=== PATIENT | male | born 1945 ===

== ENCOUNTER 2024-09-09 21:03 | Emergency (ER) | payer MEDICARE ==
[~2024-09-09] VITALS: Ht 167.6 cm; Wt 83.9 kg
[2024-09-09] MEDS ORDERED: ZYRTEC10 M2 PO (22:28)
== END 2024-09-09 22:36 | disposition home or self-care (01) ==
LOC: ER 21:03
DX: J02.9 Acute pharyngitis, unspecified (principal); I10 Essential (primary) hypertension; Z88.5 Allergy status to narcotic agent; E78.5 Hyperlipidemia, unspecified
CPT/HCPCS: 99283

== ENCOUNTER 2024-10-21 11:33 | Emergency (ER) | payer MEDICARE ==
[~2024-10-21] VITALS: Ht 167.6 cm; Wt 74.8 kg
[~2024-10-21 11:33] MED LIST: ZYRTEC10 M2 PO
[2024-10-21] MEDS ORDERED: NS 1,000 ML IV SCH (12:05)
[2024-10-21] MEDS ORDERED: TAMSULOSIN HCL0.4 M1 PO (12:27)
[2024-10-21] MEDS ORDERED: FINA5 PO (12:27)
[2024-10-21] MEDS ORDERED: ROSUVASTATIN CA20 MG PO (12:27)
[2024-10-21] MEDS ORDERED: CARVEDILOL6.25 MG PO (12:27)
[2024-10-21] MEDS ORDERED: VENL25 PO (12:28)
[2024-10-21] MEDS ORDERED: MEMA10 PO (12:28)
[2024-10-21] MEDS ORDERED: HYDHCL25 (12:28)
[2024-10-21 12:31] LABS: BASOPHILS ABSOLUTE AUTO 0.08 K/mm3 (0.00-0.23); BASOPHILS PERCENT AUTO 1 % (0-2); EOSINOPHILS ABSOLUTE AUTO 0.43 K/mm3 (0.00-0.68); EOSINOPHILS PERCENT AUTO 5 % (0-6); Hematocrit 40.7 % (37.0-53.0); Hemoglobin 13.0 g/dL (13.5-17.5); IMMATURE GRAN ABSOLUTE AUTO 0.02 K/mm3 (0.00-0.10); IMMATURE GRAN PERCENT AUTO 0 % (0-1); LYMPHOCYTES ABSOLUTE AUTO 2.02 K/mm3 (0.84-5.20); LYMPHOCYTES PERCENT AUTO 23 % (21-46); MONOCYTES ABSOLUTE AUTO 0.58 K/mm3 (0.16-1.47); MONOCYTES PERCENT AUTO 7 % (4-13); Mean Corpuscular HGB Conc 31.9 g/dL (31.5-36.5); Mean Corpuscular Volume 93 fL (80-100); NEUTROPHILS ABSOLUTE AUTO 5.67 K/mm3 (1.96-9.15); NEUTROPHILS PERCENT AUTO 64 % (41-73); NRBC ABSOLUTE 0.00 K/mm3 (0.00-0.02); NRBC Auto 0.0 /100 WBC (0.0-0.2); Platelet Count 301 K/mm3 (150-400); RDW Coefficient Variation 14.3 % (11.7-14.2); RDW Standard Deviation 48.4 fL (35.1-46.3)
[2024-10-21 13:31] LABS: Alanine Aminotransfer (ALT/SGP 15.0 U/L (12-78); Albumin, Blood 3.1 g/dL (3.4-5.0); Albumin/Globulin Ratio 0.7 (0.8-1.8); Anion Gap 2.0 mmol/L (3-11); Aspartate Aminotrans (AST/SGOT 18.0 U/L (12-37); Bilirubin, Total 0.5 mg/dL (0.1-1.0); Blood Urea Nitrogen 24.0 mg/dL (8-24); CO2, Blood 30.0 mmol/L (21-32); Calcium, Blood 9.3 mg/dL (8.5-10.1); Chloride, Blood 106.0 mmol/L (98-108); Creatinine, Blood 1.49 mg/dL (0.60-1.20); Globulin, Blood 4.5 g/dL (2.2-4.0); Glucose, Blood 101.0 mg/dL (70-99); Potassium, Blood 4.0 mmol/L (3.5-5.5); Sodium, Blood 134.0 mmol/L (136-145); Total Protein, Blood 7.6 g/dL (6.4-8.2)
[2024-10-21] MEDS ORDERED: CARV3.125 PO (16:50)
== END 2024-10-21 17:29 | disposition home or self-care (01) ==
LOC: ER 11:33
PROVIDERS: Emergency Medicine; Physician Assistant
DX: I49.3 Ventricular premature depolarization (principal); I11.0 Hypertensive heart disease with heart failure; I50.9 Heart failure, unspecified; E78.5 Hyperlipidemia, unspecified; Z88.5 Allergy status to narcotic agent; Z79.899 Other long term (current) drug therapy
CPT/HCPCS: 71045; 80053; 82947; 83880; 84439; 84443; 84481; 84484; 85025; 93005; 93010; 99284-25

== ENCOUNTER 2024-11-26 13:18 | Inpatient (IN) | payer MEDICARE ==
[~2024-11-26] VITALS: Ht 165.1 cm; Wt 59.9 kg
[~2024-11-26 13:18] MED LIST changes: +CARV3.125 PO; +CARVEDILOL6.25 MG PO; +FINA5 PO; +HYDHCL25; +MEMA10 PO; +ROSUVASTATIN CA20 MG PO; +TAMSULOSIN HCL0.4 M1 PO; +VENL25 PO
[2024-11-26 13:48] LABS: BASOPHILS ABSOLUTE AUTO 0.06 K/mm3 (0.00-0.23); BASOPHILS PERCENT AUTO 1 % (0-2); EOSINOPHILS ABSOLUTE AUTO 0.31 K/mm3 (0.00-0.68); EOSINOPHILS PERCENT AUTO 5 % (0-6); Hematocrit 37.6 % (37.0-53.0); Hemoglobin 11.9 g/dL (13.5-17.5); IMMATURE GRAN ABSOLUTE AUTO 0.01 K/mm3 (0.00-0.10); IMMATURE GRAN PERCENT AUTO 0 % (0-1); LYMPHOCYTES ABSOLUTE AUTO 1.22 K/mm3 (0.84-5.20); LYMPHOCYTES PERCENT AUTO 18 % (21-46); MONOCYTES ABSOLUTE AUTO 0.47 K/mm3 (0.16-1.47); MONOCYTES PERCENT AUTO 7 % (4-13); Mean Corpuscular HGB Conc 31.6 g/dL (31.5-36.5); Mean Corpuscular Volume 93 fL (80-100); NEUTROPHILS ABSOLUTE AUTO 4.83 K/mm3 (1.96-9.15); NEUTROPHILS PERCENT AUTO 70 % (41-73); NRBC ABSOLUTE 0.00 K/mm3 (0.00-0.02); NRBC Auto 0.0 /100 WBC (0.0-0.2); Platelet Count 240 K/mm3 (150-400); RDW Coefficient Variation 13.3 % (11.7-14.2); RDW Standard Deviation 45.9 fL (35.1-46.3)
[2024-11-26 14:32] LABS: Alanine Aminotransfer (ALT/SGP 21.0 U/L (12-78); Albumin, Blood 3.3 g/dL (3.4-5.0); Albumin/Globulin Ratio 0.9 (0.8-1.8); Anion Gap 5.0 mmol/L (3-11); Aspartate Aminotrans (AST/SGOT 28.0 U/L (12-37); Bilirubin, Total 0.5 mg/dL (0.1-1.0); Blood Urea Nitrogen 21.0 mg/dL (8-24); CO2, Blood 32.0 mmol/L (21-32); Calcium, Blood 8.8 mg/dL (8.5-10.1); Chloride, Blood 107.0 mmol/L (98-108); Creatinine, Blood 1.31 mg/dL (0.60-1.20); Globulin, Blood 3.8 g/dL (2.2-4.0); Glucose, Blood 92.0 mg/dL (70-99); Potassium, Blood 4.4 mmol/L (3.5-5.5); Sodium, Blood 140.0 mmol/L (136-145); Total Protein, Blood 7.1 g/dL (6.4-8.2)
--- NOTE | 2024-11-26 17:55 | NUR ---
REPORT RECIEVED FROM ER NURSE AT 0306.
[2024-11-26 18:23] VITALS: BP 147/72
[2024-11-26] MEDS ORDERED: CARV3.125 PO (18:34)
[2024-11-26 18:44] LABS: Thyroid Stimulating Hormone 2.45 uIU/mL (0.360-4.800)
--- NOTE | 2024-11-26 19:16 | NUR ---
ARRIVAL TO PCU PT ARRIVED FROM ER AT 181 VIA GURNEY AND ON RA. PT SLID TO PCU BED VIA SLIDE AND BY 4 STAFF MEMBERS. PT ON RA AT TIME OF ARRIVAL. PT NEEDED ASSISTATNCE TO ROLL WHEN CHANGING INTO GOWN. LACERATION ON RIGHT SIDE OF HEAD AND ABRASION OF RIGHT KNEE NOTED, BOTH FROM FALL AT HOME PER GRANDDAUGHTER. PT A/OX3, ABLE TO ANSWER SOME HISTORY QUESTIONS, GRANDDAUGHTER FILLED IN. PT ORIENTED TO ROOM AND CALL LIGHT.
[2024-11-26 19:47] VITALS: BP 146/66
[2024-11-27 00:05] VITALS: BP 119/62
[2024-11-27 04:18] VITALS: BP 130/63
[2024-11-27 05:00] LABS: BASOPHILS ABSOLUTE AUTO 0.05 K/mm3 (0.00-0.23); BASOPHILS PERCENT AUTO 1 % (0-2); EOSINOPHILS ABSOLUTE AUTO 0.38 K/mm3 (0.00-0.68); EOSINOPHILS PERCENT AUTO 6 % (0-6); Hematocrit 35.6 % (37.0-53.0); Hemoglobin 11.5 g/dL (13.5-17.5); IMMATURE GRAN ABSOLUTE AUTO 0.01 K/mm3 (0.00-0.10); IMMATURE GRAN PERCENT AUTO 0 % (0-1); LYMPHOCYTES ABSOLUTE AUTO 1.80 K/mm3 (0.84-5.20); LYMPHOCYTES PERCENT AUTO 27 % (21-46); MONOCYTES ABSOLUTE AUTO 0.50 K/mm3 (0.16-1.47); MONOCYTES PERCENT AUTO 8 % (4-13); Mean Corpuscular HGB Conc 32.3 g/dL (31.5-36.5); Mean Corpuscular Volume 91 fL (80-100); NEUTROPHILS ABSOLUTE AUTO 3.82 K/mm3 (1.96-9.15); NEUTROPHILS PERCENT AUTO 58 % (41-73); NRBC ABSOLUTE 0.00 K/mm3 (0.00-0.02); NRBC Auto 0.0 /100 WBC (0.0-0.2); Platelet Count 217 K/mm3 (150-400); RDW Coefficient Variation 13.3 % (11.7-14.2); RDW Standard Deviation 44.5 fL (35.1-46.3)
[2024-11-27 05:27] LABS: Alanine Aminotransfer (ALT/SGP 19.0 U/L (12-78); Albumin, Blood 3.0 g/dL (3.4-5.0); Albumin/Globulin Ratio 0.9 (0.8-1.8); Anion Gap 6.0 mmol/L (3-11); Aspartate Aminotrans (AST/SGOT 32.0 U/L (12-37); Bilirubin, Total 0.5 mg/dL (0.1-1.0); Blood Urea Nitrogen 20.0 mg/dL (8-24); CO2, Blood 28.0 mmol/L (21-32); Calcium, Blood 8.4 mg/dL (8.5-10.1); Chloride, Blood 109.0 mmol/L (98-108); Creatinine, Blood 1.11 mg/dL (0.60-1.20); Globulin, Blood 3.4 g/dL (2.2-4.0); Glucose, Blood 77.0 mg/dL (70-99); Magnesium, Blood 2.2 mg/dL (1.6-2.4); Potassium, Blood 4.0 mmol/L (3.5-5.5); Sodium, Blood 139.0 mmol/L (136-145); Total Protein, Blood 6.4 g/dL (6.4-8.2)
--- NOTE | 2024-11-27 05:52 | NUR ---
SHIFT SUMMARY - PT A/OX2 TO SELF AND DAUGHTER, UNAWARE OF LOCATION OR SITUATION. 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 PT ENDORSES HEADACHE FROM RECENT GLF. OBEYS COMMANDS AND COOPERATES WITH CARE. ON CONTINUOUS CARDIAC TELEMETRY, IN A SINUS RHYTHM WITH HR IN 60'S THROUGH MOST OF THE NIGHT. LIVESTOCK COMMISSION AGENT NOTIFIED THIS RN OF ST ELEVATION, EKG IN CHART SHOWS LEFT BBB. PT DENIES ANY CHEST PAIN/PRESSURE. ON RA, SATS ABOVE 93%. LUNG SOUNDS ARE CLEAR, BREATHING IS SHALLOW AND UNLABORED. PT PULLED OUT HIS IV EARLY THIS AM. ANOTHER PLACED BY STUDENT NURSE IN RFA. NO ACUTE EVENTS THIS SHIFT. ECHO AND ST TO FOLLOW TODAY. SEE PREVIOUS NOTE FOR FURTHER ASSESSMENT.
[2024-11-27 08:04] VITALS: BP 135/69
--- NOTE | 2024-11-27 08:16 | NUR ---
CALL TO MD TO NOTIFY OF PROLONGED QTC .51. CARDIOLOGY ALREADY CONSULTED. NO NEW ORDERS AT THIS TIME.
[2024-11-27] MEDS ORDERED: FLU VACC TS2025-26(6MOS UP)/PF 45 MCG/0.5 ML SYRINGE IM SCH (09:00)
[2024-11-27] MEDS ORDERED: Enoxaparin 40 MG/0.4 ML SYR SC SCH (09:00)
[2024-11-27 11:14] VITALS: BP 167/96
[2024-11-27 15:47] VITALS: BP 142/86
[2024-11-27 15:53] LABS: Source, Urine Clean Catch
[2024-11-27 16:08] LABS: Bilirubin, Urine Neg (Neg); Glucose Qualitative, Urine Neg (Neg); Ketones, Urine Neg (Neg); Leukocyte Esterase, Urine 3+ (Neg); Protein, Urine 2+ (Neg); Specific Gravity, Urine 1.020 (1.003-1.022); Urobilinogen, Urine NORM (Normal)
[2024-11-27 16:14] LABS: Color, Urine Yellow (P-Yellow)
[2024-11-27 16:18] LABS: White Blood Cells, Urine TNTC /hpf (0-5)
--- NOTE | 2024-11-27 18:26 | NUR ---
SHIFT SUMMARY PT A&O X 2, ORIENTED TO SELF AND FAMILY, SOMETIMES ORIENTED TO PLACE. SR 60-70s WITH RUNS OF BIGEM AND SVT. SBP 130-140s AND STABLE. ALL OTHER VSS STABLE. URINE IS CLOUDY, CULTURE RESULTS PENDING. PT HAS NOT HAD A BM THIS SHIFT BUT IS STILL PASSING GAS. PT REQUIRES ASSIST WITH MEALS, TOLERATING WELL, NO COUGHING NOTED. PT IS ABLE TO PROVIDE SOME ASSISTANCE WITH REPOSITIONING. HE IS LESS ORIENTED AT END OF SHIFT, REACHING UP AND PULLING AT TELE CORDS. DOES WELL WITH REDIRECTION. PTS GRANDDUAGHTER AT BEDSIDE MOST OF SHIFT, UPDATED ON CARE PLAN.
[2024-11-27 20:49] VITALS: BP 160/64
[2024-11-28 00:13] VITALS: BP 138/64
[2024-11-28 06:13] VITALS: BP 115/58
--- NOTE | 2024-11-28 06:18 | NUR ---
SHIFT SUMMARY PATIENT PLEASANTLY CONFUSED ALL SHIFT. DID NOT SLEEP MOST OF SHIFT. PATIENT REDIRECTABLE AND CALM. FREQUENT HALLUCINATIONS. PATIENT TOOK MEDS WHOLE WITH APPLESAUCE WITHOUT ISSUE. FRANCES SIPS OF WATER. PATIENT VOIDED INTO URINAL MULTIPLE TIMES, 1 EPISODE OF INCONTINENCE. FREQUENT TURNING. PATIENT PROVIDED VERBAL REASSURANCE AND REORIENTATION THROUGHOUT THE SHIFT. HE EXPRESSED DESIRE TO RETURN HOME. VITALS STABLE. NO PHYSICAL DISTRESS NOTED. BED ALARM REMAINED ON, CALL LIGHT IN REACH, AND BED IN LOWEST POSITION.
[2024-11-28 08:33] VITALS: BP 96/85
[2024-11-28] MEDS ORDERED: CefTRIAXone Sodium 1,000 MG in NS 100 ML IV SCH (09:00)
[2024-11-28 11:38] VITALS: BP 118/57
--- NOTE | 2024-11-28 15:23 | NUR ---
PT IS A&O TO SELF, DOES NOT USE CALL LIGHT AND IS IMPULSIVE. HE HAS BEEN ADAMANT TODAY THAT HE WANTS TO GO HOME. CONTINUE TO REINFORCE THAT THE DR WANTS TO KEEP HIM OVERNIGHT FOR SURE TO SEE IF THE URINE CX RESULTS COME BACK. HE IS ON RA W/O2 SATS > 92%. HE HAS BEEN USING THE URINAL W/ASSISTANCE. HE HAS NOT SLEPT @ ALL TODAY. BED IN LOW POSITION, BED ALARM ON, CALL LIGHT AND PERSONAL BELONGINGS IN REACH.
[2024-11-28 15:47] VITALS: BP 139/87
[2024-11-28 20:45] VITALS: BP 159/106
[2024-11-29] VITALS (7 sets, daily range): BP systolic 105–161; BP diastolic 43–71
[2024-11-29 04:02] LABS: Hematocrit 42.5 % (37.0-53.0); Hemoglobin 13.7 g/dL (13.5-17.5); Mean Corpuscular HGB Conc 32.2 g/dL (31.5-36.5); Mean Corpuscular Volume 90 fL (80-100); NRBC ABSOLUTE 0.00 K/mm3 (0.00-0.02); NRBC Auto 0.0 /100 WBC (0.0-0.2); Platelet Count 234 K/mm3 (150-400); RDW Coefficient Variation 13.2 % (11.7-14.2); RDW Standard Deviation 43.2 fL (35.1-46.3)
[2024-11-29 04:31] LABS: Albumin, Blood 3.2 g/dL (3.4-5.0); Anion Gap 8 mmol/L (3-11); Blood Urea Nitrogen 17 mg/dL (8-24); CO2, Blood 29 mmol/L (21-32); Calcium, Blood 9.1 mg/dL (8.5-10.1); Chloride, Blood 105 mmol/L (98-108); Creatinine, Blood 1.03 mg/dL (0.60-1.20); Glucose, Blood 99 mg/dL (70-99); Magnesium, Blood 2.4 mg/dL (1.6-2.4); Phosphorus, Blood 3.6 mg/dL (2.5-4.9); Potassium, Blood 3.8 mmol/L (3.5-5.5); Sodium, Blood 138 mmol/L (136-145)
--- NOTE | 2024-11-29 05:19 | NUR ---
END OF SHIFT REPORT PT CLEANED OF LARGE BM WITH TECH ASSIST AND REPOSITIONED. PT TOOK PO MEDICATIONS W APPLESAUCE. PRN XYPREXA GIVEN FOR SOME GRABBING AT STAFF WHILE CLEANING PT. PT NOW MUMBLING TO HIMSELF AND USING ARMS IN AIR. BED ALARMS FOR SAFETY AND STAFF SITTING OUTSIDE ROOM WHEN ABLE TO OBSERVE IF PT TRYING TO GET OOB. IN AM, PT STARTED GETTING MORE RESTLESS. TECHS REPOSITIONED AND CLEANED PT OF URINE AND STOOL IN BRIEF. PT CALMED AND RETURNED TO REST. BED ALARMS FOR SAFETY, CALL LITE IN REACH, BED LOW AND LOCKED.
--- NOTE | 2024-11-29 16:58 | NUR ---
PT IS A&O TO SELF, HE DOES NOT USE THE CALL LIGHT APPROPRIATELY. HE IS ON RA W/O2 SATS > 92%. HE DOES HAVE EPISODES OF INCONTINENCE. NO EPSIODES OF AGITATION THIS SHIFT, HE HAS SLEPT FOR A GOOD PORTION OF THE DAY. NO NEEDS OR CONCERNS NOTED @ THIS TIME. BED IN LOW POSITION, BED ALARM ON, CALL LIGHT AND PERSONAL BELONGINGS IN REACH.
[2024-11-29] MEDS ORDERED: Lactobacil 2-S.Thermo-Bifido 1 1 Cap PO SCH (21:00)
[2024-11-30 04:36] VITALS: BP 127/52
--- NOTE | 2024-11-30 06:17 | NUR ---
SHIFT SUMMARY PT IS SOMMOLENT &O X 1-2, ABLE TO STATE NAME// OF 2024, PT OCCASIONALLY REACHING/GRABING IN AIR, STARING AT CEILING, BED ALARM ACTIVE, OBEYS COMMANDS CONTINUOUS SPO2, SPO2 GREATER THAN 92% RA , LUNGS SOUND CLEAR T/O, NO SIGNS OF RESPIRATORY DISTRESS NOTED. CONTINUOUS TELE MONITORING, SINUS 60-80 S, PULSES PRESENT T/O. BOWEL TONES PRESENT IN ALL 4Q. PT HAVING INCONTINENT EPISODES, URINE YELLOW IN COLOR BED LOWEST POSITION, CALL LIGHT IN REACH, AWAITING TO GIVE REPORT TO ONCOMING RN.
[2024-11-30 08:21] VITALS: BP 111/54
[2024-11-30 09:20] LABS: pH Blood Venous 7.38 (7.34-7.37)
[2024-11-30 09:20] LABS: BASOPHILS ABSOLUTE AUTO 0.06 K/mm3 (0.00-0.23); BASOPHILS PERCENT AUTO 1 % (0-2); EOSINOPHILS ABSOLUTE AUTO 0.27 K/mm3 (0.00-0.68); EOSINOPHILS PERCENT AUTO 3 % (0-6); Hematocrit 40.4 % (37.0-53.0); Hemoglobin 13.0 g/dL (13.5-17.5); IMMATURE GRAN ABSOLUTE AUTO 0.04 K/mm3 (0.00-0.10); IMMATURE GRAN PERCENT AUTO 0 % (0-1); LYMPHOCYTES ABSOLUTE AUTO 1.49 K/mm3 (0.84-5.20); LYMPHOCYTES PERCENT AUTO 16 % (21-46); MONOCYTES ABSOLUTE AUTO 0.58 K/mm3 (0.16-1.47); MONOCYTES PERCENT AUTO 6 % (4-13); Mean Corpuscular HGB Conc 32.2 g/dL (31.5-36.5); Mean Corpuscular Volume 92 fL (80-100); NEUTROPHILS ABSOLUTE AUTO 6.84 K/mm3 (1.96-9.15); NEUTROPHILS PERCENT AUTO 74 % (41-73); NRBC ABSOLUTE 0.00 K/mm3 (0.00-0.02); NRBC Auto 0.0 /100 WBC (0.0-0.2); Platelet Count 212 K/mm3 (150-400); RDW Coefficient Variation 13.7 % (11.7-14.2); RDW Standard Deviation 46.3 fL (35.1-46.3)
[2024-11-30 09:50] LABS: Alanine Aminotransfer (ALT/SGP 14.0 U/L (12-78); Albumin, Blood 3.1 g/dL (3.4-5.0); Albumin/Globulin Ratio 0.8 (0.8-1.8); Anion Gap 5.0 mmol/L (3-11); Aspartate Aminotrans (AST/SGOT 21.0 U/L (12-37); Bilirubin, Total 0.6 mg/dL (0.1-1.0); Blood Urea Nitrogen 20.0 mg/dL (8-24); CO2, Blood 32.0 mmol/L (21-32); Calcium, Blood 9.3 mg/dL (8.5-10.1); Chloride, Blood 107.0 mmol/L (98-108); Creatinine, Blood 1.26 mg/dL (0.60-1.20); Globulin, Blood 3.7 g/dL (2.2-4.0); Glucose, Blood 86.0 mg/dL (70-99); Potassium, Blood 3.9 mmol/L (3.5-5.5); Sodium, Blood 140.0 mmol/L (136-145); Total Protein, Blood 6.8 g/dL (6.4-8.2)
[2024-11-30] MEDS ORDERED: NS 1,000 ML IV SCH (10:10)
[2024-11-30 11:11] VITALS: BP 110/61
[2024-11-30 11:51] LABS: pH Blood Venous 7.41 (7.34-7.37)
--- NOTE | 2024-11-30 12:41 | NUR ---
MORNING NOTE THIS RN AND CHRIS RN ASSUMED CARE OF PT THIS AM. DURING BEDSIDE SHIFT REPORT, PT WAS SLEEPING. UPON CHRIS AND I'S RETURN FOR MORNING VITALS WE ATTEMPTED TO WAKE THE PATIENT TO VERIFY HIS IDENTITY AND ANSWER QUESTIONS. PT WAS NOT AROUSABLE TO VERBAL STIMULATION OR HAVING HIS FACE CLEANED WITH A COOL WET WASHCLOTH. PT BREIFLY OPENED EYES AND MADE A NOISE BUT NO DISCERNABLE WORDS WITH PAINFUL STIMULI. THIS STIMULI INCLUDED NAILBED PRESSURE AND STERNAL RUB. PT'S EYES WERE MANUALLY OPENED TO ASSESS PUPILS, WHICH WERE 1MM IN SIZE. PT RESISTED THIS ASSESSMENT BY TRYING TO FORCE HIS EYES SHUT. DR. ESQUIVEL MADE AWARE OF PTs CURRENT SITUATION AND ROUNDED AT BEDSIDE. VBG AND MORNING LABS ORDERED WHILE DR. ESQUIVEL WAS AT BEDSIDE. PT ALSO PUT ON FLUIDS PER ORDERS FOR DECREASED KIDNEY FUNCTION. PER DR ESQUIVEL, PT PLACED ON BIPAP 12/5 AT ABOUT 1010 THIS MORNING. REPEAT VBG COMPLETED AND NO IMPROVEMENT NOTED ON NEURO STATUS. PT CURRENTLY AT HEAD CT W/O CONTRAST PER ORDERS. GRANDDAUGHTER TAMAR AND HER SHAYNE AT BEDSIDE AND UPDATED ON CARE. PALLIATIVE CARE SAW PT, NO NEW ORDERS. PT CURRENTLY NPO DUE TO SOMULENCE, DISCUSSED WITH DR. ESQUIVEL.SEE NOTES FOR UPDATES.
--- NOTE | 2024-11-30 14:55 | NUR ---
MORNING UPDATE: SEE PREVIOUS NOTE FROM ZULMA GARZA. ABOUT 1410 THE PT BEGAN TO WAKE UP. HE WAS MUMBLING WORDS UNDER THE BIPAP. THIS RN TOOK THE PT'S BIPAP OFF AND THE PT ASKED FOR A WASH CLOTH TO CLEAN HIS FACE. THE PT WAS ABLE TO COMPLETE A REASSESSMENT AND FOLLOW ALL COMMANDS STAYING ALERT. SPEECH IS STILL NOTED TO BE MUMBLED. PHYSICAL THERAPY CAME AND WORKED WITH THE PT AND THE PATIENT FOLLOWED THERAPY WELL. THE PT WAS ABLE TO TAKE SOME STEPS AND GET UP IN THE RECLINER WITH 1P MOD ASSIST. FAMILY AND DR. ESQUIVEL AT BEDSIDE DISCUSSING HOME RESOURCES. THE FAMILY IS ADAMANT ABOUT TAKING THE PT HOME TODAY AND WOULD LIKE TO CONTINUE HAVING [facility] COME OUT TO THEIR HOUSE FOR HOME HEALTH. SPEECH THERAPY WAS UNABLE TO EVALUATE THE PT THIS MORNING AND HAS GONE HOME FOR THE DAY. EDUCATION ABOUT THICKEND LIQUIDS, WATCHING THE PT SWALLOW, NO STRAWS, SOFTER FOOD'S W/O MIX CONSISTENCY WAS DISCUSSED WITH PT'S GRANDDAUGHTER TAMAR. ALSO, DURABLE POWER OF LIFT ELECTRICIAN PAPER WORK WAS PHOTO COPIED AND ADDED TO THE PT'S CHART PALLIATIVE CARE AWARE. PLAN FOR D/C WITH HOME HEALTH AND [facility] [facility]. SEE NOTES FOR UPDATES.
--- NOTE | 2024-11-30 15:18 | NUR ---
PALLIATIVE CARE VISIT X 2: 1105 CALLED BY EARLY INTERVENTION SPECIALIST THIS MORNING, PT NOT DOING WELL, GOING ON BIPAP, NON RESPONSIVE. GD IS PRESENT. CALLED MD PRIOR TO VISIT TO GIVE UPDATED CONCERNS. DR. ESQUIVEL ALSO PRESENT. PT IS ON BIPAP, HE IS NON-RESPONSIVE. GD STATES SHE IS POA. WE HAVE NO POA DOCUMENT ON FILE. DISCUSSED CONCERNS OF PT DECLINE WITH GD. DISCUSSED CODE STATUS/GOC. PER G, SHE WAS PRESENT IN ER WHEN ER DOCTOR DISCUSSED CODE STATUS AND HER GRANDFATHER HAD STATED AT THAT TIME HE WANTED TO BE FULL CODE. SHE DOES NOT WANT TO CHANGE CODE STATUS UNTIL SHE CAN TALK TO HER GRANDFATHER. RISKS OF CPR DISCUSSED. GD VU. 1445: GD BROUGHT POA DOCUMENT. REVIEWED DOCUMENT AND MUMTAZ NGUYEN IS LISTED POA. DOCUMENT HAS BEEN SIGNED BY WITNESS X 2 AND NOTARIZED. PLACED COPY ON CHART AND SENT COPY TO MEDICAL RECORDS. DOCUMENT DOES NOT INDICATE PT CHOICES BUT GIVES [facility] AUTHORIZATION TO MAKE ALL DECISIONS FOR PT. PER GD PT MAY HAVE A POLST WITH [employer]. CALLED [facility] AND NO POLST WAS FOUND. UPDATED GD.
[2024-11-30 15:43] VITALS: BP 114/65
[2024-11-30] MEDS ORDERED: CEFP200 PO (15:49)
[2024-11-30] MEDS ORDERED: LEVSOD100 PO (15:49)
[2024-11-30] MEDS ORDERED: LISINOPRIL2.5 MG PO (15:50)
[2024-11-30] MEDS ORDERED: PROBIOTIC1 EA13 PO (15:52)
--- NOTE | 2024-11-30 16:30 | NUR ---
DISCHARGE SUMMARY PT DISCHARGED IN WHEELCHAIR WITH FAMILY AT SIDE. PT WILL BE GOING TO GRANDDAUGHTER TAMAR'S HOUSE WHO IS HIS POA. DOYLE EDUCATED ON MEDICATIONS AND DISCHARGE INSTRUCTIONS, INCLUDING TO FOLLOW UP W/ PCP. AT DISCHARGE, PT WAS ALERT AND ORIENTED X3, ANSWERING QUESTIONS, AND FOLLOWING COMMANDS. WHEELED TO PARKING LOT WITH BELONGINGS BY CHRIS GARZA ON RA. INSIDE BELONGINGS WERE HIS 2 PARTIAL DENTURES AND GLASSES. ZIOPATCH IN PLACE ON PT's CHEST. NO FURTHER NOTES.
== END 2024-11-30 16:50 | disposition home health service (06) | DRG 308 ==
LOC: ER 13:18 → PCU 13:19
PROVIDERS: Internal Medicine; Student in an Organized Health Care Education/Training Program; ADMIT Internal Medicine
DX: R00.1 Bradycardia, unspecified (principal); G93.41 Metabolic encephalopathy; J96.90 Respiratory failure, unspecified, unspecified whether with hypoxia or hypercapnia; I50.22 Chronic systolic (congestive) heart failure; N39.0 Urinary tract infection, site not specified; I11.0 Hypertensive heart disease with heart failure; N40.0 Benign prostatic hyperplasia without lower urinary tract symptoms; G31.83 Neurocognitive disorder with Lewy bodies; F02.80 Dementia in other diseases classified elsewhere, unspecified severity, without behavioral disturbance, psychotic disturbance, mood disturbance, and anxiety; E03.9 Hypothyroidism, unspecified; E78.5 Hyperlipidemia, unspecified; Z88.5 Allergy status to narcotic agent; Z79.899 Other long term (current) drug therapy; B96.89 Other specified bacterial agents as the cause of diseases classified elsewhere
CPT/HCPCS: 36415; 70450; 71045; 71046; 72125; 80053; 80069; 81001; 82803; 82947; 83735; 84439; 84443; 84484; 85025; 85027; 87077; 87086; 87186; 93005; 93010; 93246; 94660; 96372; 97161; 97165; 97530; 97535; 99285-25; A9270; C8929; G0378; J0696; J1650; J7030; Q9957

== ENCOUNTER → 2025-01-19 | Outpatient (CLI) | payer MEDICARE ==
[~2025-01-19] MED LIST changes: +CEFP200 PO; +LEVSOD100 PO; +LISINOPRIL2.5 MG PO; +PROBIOTIC1 EA13 PO
[2025-01-19 16:14] LABS: Hematocrit 40.3 % (37.0-53.0); Hemoglobin 12.7 g/dL (13.5-17.5); Mean Corpuscular HGB Conc 31.5 g/dL (31.5-36.5); Mean Corpuscular Volume 90 fL (80-100); NRBC ABSOLUTE 0.00 K/mm3 (0.00-0.02); NRBC Auto 0.0 /100 WBC (0.0-0.2); Platelet Count 166 K/mm3 (150-400); RDW Coefficient Variation 14.8 % (11.7-14.2); RDW Standard Deviation 49.2 fL (35.1-46.3)
[2025-01-19 16:15] LABS: Alanine Aminotransfer (ALT/SGP 21.0 U/L (12-78); Albumin, Blood 3.5 g/dL (3.4-5.0); Albumin/Globulin Ratio 1.0 (0.8-1.8); Anion Gap 8.0 mmol/L (3-11); Aspartate Aminotrans (AST/SGOT 29.0 U/L (12-37); Bilirubin, Total 0.4 mg/dL (0.1-1.0); Blood Urea Nitrogen 27.0 mg/dL (8-24); CO2, Blood 30.0 mmol/L (21-32); Calcium, Blood 9.2 mg/dL (8.5-10.1); Chloride, Blood 106.0 mmol/L (98-108); Creatinine, Blood 1.37 mg/dL (0.60-1.20); Globulin, Blood 3.6 g/dL (2.2-4.0); Glucose, Blood 91.0 mg/dL (70-99); Potassium, Blood 3.5 mmol/L (3.5-5.5); Sodium, Blood 140.0 mmol/L (136-145); Total Protein, Blood 7.1 g/dL (6.4-8.2)
[2025-01-19 16:55] LABS: BASOPHILS ABSOLUTE MAN 0.05 K/mm3 (0.00-0.23); BASOPHILS PERCENT MAN 1 % (0-2); EOSINOPHILS ABSOLUTE MAN 0.00 K/mm3 (0.00-0.68); EOSINOPHILS PERCENT MAN 0 % (0-6); LYMPHOCYTES ABSOLUTE MAN 1.26 K/mm3 (0.84-5.20); LYMPHOCYTES PERCENT MAN 24 % (21-46); MONOCYTES ABSOLUTE MAN 0.26 K/mm3 (0.16-1.47); MONOCYTES PERCENT MAN 5 % (4-13); NEUTROPHILS ABSOLUTE MAN 3.68 K/mm3 (1.96-9.15); SEG NEUTROPHILS PERCENT MAN 70 % (41-73)
== END ==
LOC: LAB 15:11 → LAB SHORT 15:11
PROVIDERS: Nurse Practitioner
DX: E86.0 Dehydration (principal); S49.92XA Unspecified injury of left shoulder and upper arm, initial encounter
CPT/HCPCS: 80053; 85007; 85027

== ENCOUNTER → 2025-01-21 | Outpatient (CLI) | payer MEDICARE | LOC: LAB SHORT 14:41 → LAB 14:41 | DX: R05.1 Acute cough (principal); R41.82 Altered mental status, unspecified | CPT/HCPCS: 87086 ==